=== PATIENT | male | born 1950 | race Caucasian/White ===

== ENCOUNTER 2016-07-02 08:35 | Day surgery (SDC) | payer BC ==
[2016-06-28 15:00] VITALS: BMI 30.2
[~2016-07-02 08:35] MED LIST: LACTATED RINGERS 1,000 ML IV SCH
[2016-07-02] MEDS ORDERED: LACTATED RINGERS 1,000 ML IV ONE (09:18)
[2016-07-02] MEDS ORDERED: LIDOCAINE 1% 20 ML VIAL (10MG/ML) FOR IV START INTRADERMA ONE (09:19)
[2016-07-02 09:24] VITALS: RESP 18; TEMP 98
[2016-07-02] MEDS ORDERED: PROPOFOL 10 MG/ML 20 ML VIAL IV ONE (10:12)
--- NOTE | 2016-07-02 10:40 | P.PCN ---
Date of Procedure: 07/02/16 Procedure(s) Performed: Procedure: Total colonoscopy. Preoperative diagnosis: Screening for neoplasia. Postoperative diagnosis: 1. Mild sigmoid diverticulosis with no evidence of acute diverticulitis or strictures. 2. No polyps or tumors seen. 3. Low-grade internal hemorrhoids without bleeding at the time of this exam. Preparation: HalfLytely prep. Sedation: Was provided by anesthesia. Brief clinical history: The patient is a 65-year-old male who was scheduled for this evaluation for screening for neoplasia age being his risk factor. He had a prior exam more than 10 years ago. At this time, he has no abdominal complaints, bleeding or anemia. Procedure: With the patient on his left lateral decubitus position and after informed consent and adequate sedation, the perianal area was inspected and it did not show any fissures or fistulas. There were no masses felt on digital rectal examination. The Olympus CFQ 160L video colonoscope was then inserted in the rectum in the usual fashion and advanced to the cecum. There was occasional small diverticular orifice seen in the sigmoid with no evidence of acute diverticulitis or strictures. The mucosa appeared healthy. No polyps or tumors were seen. I retroflexed endoscope in the rectum before the endoscope was withdrawn. The patient tolerated the procedure well. Plan: The patient was reassured. Discussed dietary measures and local care for hemorrhoids. He will follow-up with you as planned and I recommended repeat exam in 10 years.
[2016-07-02 10:54] VITALS: BP 178/87; PULSE 48
== END 2016-07-02 11:21 | disposition home or self-care (01) ==
LOC: ORWHC2ENDO 08:35
DX: Z12.11 Encounter for screening for malignant neoplasm of colon (principal); K57.30 Diverticulosis of large intestine without perforation or abscess without bleeding; K64.8 Other hemorrhoids; I25.10 Atherosclerotic heart disease of native coronary artery without angina pectoris; Z95.5 Presence of coronary angioplasty implant and graft; K21.9 Gastro-esophageal reflux disease without esophagitis; I10 Essential (primary) hypertension; E78.5 Hyperlipidemia, unspecified; Z79.82 Long term (current) use of aspirin; Z79.899 Other long term (current) drug therapy
CPT/HCPCS: J2704; G0121; 45378; 99153

== ENCOUNTER → 2017-03-11 | Outpatient (CLI) | payer BC ==
--- NOTE | 2017-03-11 16:53 | XR ---
EXAMINATION TYPE: XR foot complete RT DATE OF EXAM: 03/11/2017 COMPARISON: NONE HISTORY: Pain TECHNIQUE: 3 views FINDINGS: There are plantar and Achilles calcaneal spurs. The metatarsals appear intact. There is mul tiple hammertoe deformity. I see no fracture. IMPRESSION: No acute abnormality of the right foot.
== END ==
LOC: RADXRYALE 16:31
PROVIDERS: ATTEND Physician Assistant
DX: M79.671 Pain in right foot (principal)

== ENCOUNTER 2017-06-17 10:36 | Emergency (ER) | payer BC ==
[2017-06-17 10:50] VITALS: RESP 16
[2017-06-17] MEDS ORDERED: SODIUM CHLORIDE 0.9% 1,000 ML IV STA ×2 (11:42→11:44)
[2017-06-17] MEDS ORDERED: AMPICILLIN-SULBACTAM 3 GM in SODIUM CHLORIDE 0.9% 100 ML IVPB STA (11:46)
[2017-06-17] MEDS ORDERED: KETOROLAC 30 MG/ML 1 ML VIAL IVP STA (11:48)
--- NOTE | 2017-06-17 12:06 | ED ---
Extremity Problem HPI - General Chief complaint: Extremity Problem,Nontraumatic Stated complaint: RT KNEE PAIN Time Seen by Provider: 06/17/17 11:36 Source: patient Mode of arrival: ambulatory Limitations: no limitations - History of Present Illness Initial comments: This 66-year-old white male presents with a complaint of some swelling and redness present to his right knee. He states that he first noticed this 2 days ago. He apparently was doing a lot of work on his knees approximately 5 days ago. He does have psoriasis overlying his right knee. He started feeling very fatigued and weak approximately 3 days ago. He states that his highest temperature was 99.9. He was seen at an urgent care today and was sent to the ER for further evaluation. They did give him a Rocephin IM injection in the urgent care. He does complain of some slight pain to his right knee and leg. He denies any other complaints or modifying factors. - Related Data Home Medications Medication Instructions Recorded Confirmed Atenolol [Tenormin] 12.5 mg PO DAILY 07/01/14 06/17/17 Atorvastatin Calcium [Lipitor] 80 mg PO HS 07/01/14 06/17/17 Famotidine [Pepcid] 20 mg PO BID 07/01/14 06/17/17 Nitroglycerin Sl Tabs [Nitrostat] 0.4 mg SUBLINGUAL Q5M PRN 07/01/14 06/17/17 Prasugrel [Effient] 10 mg PO DAILY 07/01/14 06/17/17 Aspirin [Adult Low Dose Aspirin EC] 81 mg PO DAILY 06/28/16 06/17/17 Cholecalciferol [Vitamin D3] 3,000 unit PO BID 06/28/16 06/17/17 Levothyroxine Sodium [Synthroid] 150 mcg PO DAILY 06/28/16 06/17/17 Lisinopril [Zestril] 5 mg PO DAILY 06/17/17 06/17/17 Previous Rx's Medication Instructions Recorded Amoxic-Pot Clav 875-125Mg 1 each PO Q12HR #20 tablet 06/17/17 [Augmentin Xr 875-125] Sulfamethox-Tmp 800-160Mg [Bactrim 1 tab PO Q12HR #20 tab 06/17/17 DS 800-160 mg] Allergies Allergy/AdvReac Type Severity Reaction Status Date / Time No Known Allergies Allergy Verified 06/17/17 10:50 Review of Systems ROS Statement: Those systems with pertinent positive or pertinent negative responses have been documented in the HPI. ROS Other: All systems not noted in ROS Statement are negative. Past Medical History Past Medical History: Coronary Artery Disease (CAD), Chest Pain / Angina, GERD/ Reflux, Hyperlipidemia, Hypertension, Myocardial Infarction ([place]), Skin Disorder , Thyroid Disorder Additional Past Medical History / Comment(s): hypothyroid, psoriases (knees), arthritis, beginning of glaucoma, shingles > 5 yrs ago Last Myocardial Infarction Date:: 2010 History of Any Multi-Drug Resistant Organisms: None Reported Past Surgical History: Heart Catheterization, Heart Catheterization With Stent, Tonsillectomy Additional Past Surgical History / Comment(s): colonoscopy, x2 heart caths, x5 heart cath w/ stents Past Anesthesia/Blood Transfusion Reactions: No Reported Reaction Date of Last Stent Placement:: 2002,2007,2010.2013 Past Psychological History: No Psychological Hx Reported Smoking Status: Never smoker Past Alcohol Use History: None Reported Past Drug Use History: None Reported - Past Family History Sister(s) Family Medical History: Cancer Additional Family Medical History / Comment(s): breast cancer Father Family Medical History: Congestive Heart Failure (CHF) Additional Family Medical History / Comment(s): at age 78 from chf Mother Family Medical History: Congestive Heart Failure (CHF) Additional Family Medical History / Comment(s): at age 7 from chf General Exam - General Exam Comments Initial Comments: GENERAL: The patient is well nourished and well hydrated. VITAL SIGNS: Heart rate, blood pressure, respiratory rate reviewed as recorded in nurse's notes. EYES: Pupils are round and reactive. Extraocular movements are intact. No conjunctival / lid redness or swelling. ENT: No external evidence of injury, swelling, or ecchymosis. Airway is patent. Throat is clear. NECK: Nontender. No swelling or evidence of injury. No subcutaneous emphysema. Trachea is midline. No thyroid mass. HEART: Regular rate and rhythm. Good peripheral pulses. LUNGS/CHEST: Breath sounds clear and equal bilaterally. No rales, rhonchi, or wheezes. No ecchymosis, subcutaneous emphysema, or tenderness. ABDOMEN: Abdomen soft without tenderness. No palpable masses or organomegaly. No peritoneal signs. No abdominal wall swelling or ecchymosis. EXTREMITIES: There is some mild tenderness around palpation of the right knee. There does not appear to be any joint effusion or prepatellar bursitis. There is excellent range of motion of the knee without any difficulty. Normal muscle tone and function. No thoracolumbar tenderness. NEUROLOGIC: Sensation is grossly intact. Cranial nerve exam reveals face is symmetrical, tongue is midline, speech is clear. SKIN: There is mild psoriasis over the anterior portion of the knee. There is associated diffuse erythema present throughout the anterior surface of the knee which extends proximally and distally. There is some minimal lymphangitis noted. No induration or masses noted. PSYCHIATRIC: Alert and oriented. Appropriate behavior and judgment. Limitations: no limitations Course Vital Signs 06/17/17 10:46 Temperature 97.1 F L Pulse Rate 72 Respiratory 16 Rate Blood Pressure 136/71 O2 Sat by Pulse 97 Oximetry Medical Decision Making - Medical Decision Making The patient was seen and examined. All diagnostics were reviewed. An IV is started and he is hydrated. He also receives some Unasyn intravenously. A discussion was held regarding admission for IV antibiotics for this cellulitis. He refuses admission. He states that his is having surgery today and he has animals to take care of does not want to be admitted. Risks and benefits were discussed in detail. We will, therefore, tried to maximize outpatient treatment benefits. Return parameters are discussed as well. It does not appear that the patient has any degree of septic knee or bursitis at this time but it seems more of a right leg cellulitis. The laboratory shows a normal white blood cell count with mild anemia and some mild renal insufficiency with inflammatory markers elevated. The x-ray of the right knee shows tricompartmental arthritis. There is also some soft tissue swelling. Clinically, it is not felt as though he has a septic knee or bursitis. Nevertheless, it is felt as though he should stay but he still refuses. He is counseled regarding need to increase oral fluid hydration for the next several days. He is instructed to utilize Tylenol instead of Motrin if needed for fever. Is felt as though he should return if his symptoms do worsen and he does agree. Orthopedic follow-up will be given as well. He leaves in no identifiable distress and refuses any pain medications. - Lab Data Result diagrams: 06/17/17 11:58 06/17/17 11:58 Lab Results 06/17/17 06/17/17 Range/Units 11:58 11:58 WBC 9.4 (3.8-10.6) k/uL RBC 4.05 L (4.30-5.90) m/uL Hgb 12.5 L (13.0-17.5) gm/dL Hct 37.6 L (39.0-53.0) % MCV 92.6 (80.0-100.0) fL MCH 30.8 (25.0-35.0) pg MCHC 33.3 (31.0-37.0) g/dL RDW 13.0 (11.5-15.5) % Plt Count 296 (150-450) k/uL Neutrophils % (Manual) 59 % Band Neutrophils % 1 % Lymphocytes % (Manual) 16 % Monocytes % (Manual) 23 % Eosinophils % (Manual) 1 % Neutrophils # (Manual) 5.60 (1.3-7.7) k/uL Lymphocytes # (Manual) 1.50 (1.0-4.8) k/uL Monocytes # (Manual) 2.16 H (0-1.0) k/uL Eosinophils # (Manual) 0.09 (0-0.7) k/uL Nucleated RBCs 0 (0-0) /100 WBC Manual Slide Review Performed RBC Morphology Normal Sodium 139 (137-145) mmol/L Potassium 4.6 (3.5-5.1) mmol/L Chloride 103 (98-107) mmol/L Carbon Dioxide 25 (22-30) mmol/L Anion Gap 11 mmol/L BUN 26 H (9-20) mg/dL Creatinine 1.30 H (0.66-1.25) mg/dL Est GFR (MDRD) Af Amer >60 (>60 ml/min/1.73 sqM) Est GFR (MDRD) Non-Af 56 (>60 ml/min/1.73 sqM) Glucose 110 H (74-99) mg/dL Calcium 9.0 (8.4-10.2) mg/dL C-Reactive Protein 51.3 H (<10.0) mg/L Disposition Clinical Impression: Cellulitis, Arthritis of right knee, Psoriasis, Renal insufficiency Disposition: HOME SELF-CARE Condition: Fair Instructions: Cellulitis (ED), Arthritis (ED) Prescriptions: Amoxic-Pot Clav 875-125Mg [Augmentin Xr 875-125] 1 each PO Q12HR #20 tablet Sulfamethox-Tmp 800-160Mg [Bactrim DS 800-160 mg] 1 tab PO Q12HR #20 tab Referrals: Morgan Grewal DO [Primary Care Provider] - 1-2 days Kolby Fernandez MD [STAFF PHYSICIAN] - 06/19/17 Time of Disposition: 13:05
[2017-06-17 12:23] LABS: HCT 37.6 % (39.0-53.0); HGB 12.5 gm/dL (13.0-17.5); MCH 30.8 pg (25.0-35.0); MCHC 33.3 g/dL (31.0-37.0); MCV 92.6 fL (80.0-100.0); Mean Platelet Volume 6.6; Platelet Count 296 k/uL (150-450); RBC 4.05 m/uL (4.30-5.90); WBC 9.4 k/uL (3.8-10.6)
[2017-06-17 12:26] LABS: Anion Gap 11 mmol/L; Blood Urea Nitrogen 26 mg/dL (9-20); C Reactive Protein 51.3 mg/L (<10.0); Carbon Dioxide 25 mmol/L (22-30); Chloride 103 mmol/L (98-107); Glucose 110 mg/dL (74-99); Potassium 4.6 mmol/L (3.5-5.1); Sodium 139 mmol/L (137-145)
[2017-06-17 12:44] LABS: Band Neutrophils % 1 %; Eosinophils # (M) 0.09 k/uL (0-0.7); Monocytes # (M) 2.16 k/uL (0-1.0); Neutrophils % (M) 59 %; Nucleated Red Blood Cells 0 /100 WBC (0-0); Total Cells Counted 100
--- NOTE | 2017-06-17 12:53 | XR ---
EXAMINATION TYPE: XR knee complete RT DATE OF EXAM: 06/17/2017 COMPARISON: NONE HISTORY: 66-year-old male with anterior swelling, bruising, pain TECHNIQUE: 3 views FINDINGS: There is moderate to severe narrowing medial compartment cartilage and joint space. Tricompartmental degenerative spurring is present. There is some bony hyperostosis along the medial margin of the medi al femoral condyle that could represent sequela of prior MCL injury. Prepatellar soft tissue swelling . Extensor mechanism is intact. Small knee joint effusion nonspecific. IMPRESSION: 1. Tricompartmental osteoarthrosis, moderate to severe in the medial compartment. 2. Prepatellar soft tissue swelling could represent contusion, cellulitis, or mild prepatellar bursit is. 3. Nonspecific small knee joint effusion. 4. No acute osseous abnormality seen.
[2017-06-17 13:15] LABS: Erythrocyte Sedimentation Rate 48 mm/hr (0-15)
[2017-06-17 13:25] VITALS: BP 121/62; PULSE 58; TEMP 98.4
== END 2017-06-17 13:40 | disposition home or self-care (01) ==
LOC: EC 10:36
DX: M17.11 Unilateral primary osteoarthritis, right knee (principal); L03.115 Cellulitis of right lower limb; L40.9 Psoriasis, unspecified; N28.9 Disorder of kidney and ureter, unspecified; R00.1 Bradycardia, unspecified; D64.9 Anemia, unspecified; E78.5 Hyperlipidemia, unspecified; I10 Essential (primary) hypertension; I25.10 Atherosclerotic heart disease of native coronary artery without angina pectoris; K21.9 Gastro-esophageal reflux disease without esophagitis; E03.9 Hypothyroidism, unspecified; I25.2 Old myocardial infarction; Z79.82 Long term (current) use of aspirin; Z79.899 Other long term (current) drug therapy; Z86.79 Personal history of other diseases of the circulatory system
CPT/HCPCS: 99284; 96365; 96375; 96361 ×2; 96360; 36415; 93005; 80048; 85652; 85025; 86140; 73562; J1885; J0295

== ENCOUNTER → 2017-06-28 | Outpatient (CLI) | payer BC ==
--- NOTE | 2017-06-28 11:58 | US ---
EXAMINATION TYPE: US kidneys/renal and bladder DATE OF EXAM: 06/28/2017 COMPARISON: NONE CLINICAL HISTORY: [id number] Abnormal results of Kidney Function Studies. Elevated creatinine EXAM MEASUREMENTS: Right Kidney: 10.1 x 5.1 x 5.0 cm Left Kidney: 9.8 x 5.2 x 4.3 cm Right Kidney: 0.5cm echogenic focus inferior pole. Cortical medullary differentiation is maintained. No solid or cystic masses are noted. Left Kidney: no hydronephrosis, nephrolithiasis or masses seen. Cortical medullary differentiation is maintained. Bladder: wnl Bilateral Jets seen: yes There is no evidence for hydronephrosis at this point in time. No masses are identified. The urinary bladder is anechoic. Bilateral ureteral jets are seen. IMPRESSION: 1. Nonobstructing 5 mm right inferior pole renal calculus. 2. No evidence of hydronephrosis or sonographic evidence of medical renal disease.
== END | disposition home or self-care (01) ==
LOC: RADUSWWP 11:00
PROVIDERS: ATTEND Family Medicine
DX: N20.0 Calculus of kidney (principal)
CPT/HCPCS: 76770

== ENCOUNTER → 2018-07-10 | Outpatient (CLI) | payer BC ==
--- NOTE | 2018-07-10 15:08 | XR ---
EXAMINATION TYPE: XR knee complete bilateral DATE OF EXAM: 07/10/2018 CLINICAL HISTORY: Chronic bilateral knee pain TECHNIQUE: Three views of the bilateral knees were obtained. COMPARISON: 06/17/2017 FINDINGS: There is no acute fracture/dislocation evident in either knee. Moderate marginal osteophyt es are seen of the medial compartment with medial compartment joint space narrowing on the left. Smal l patellofemoral osteophytes are also noted as well as joint space narrowing. No discrete suprapatell ar joint effusion. On the right there are large protuberant medial compartment osteophytes with near [id number] articulation of the medial compartment and moderate lateral compartment osteophytes as w ell as small patellofemoral osteophytes with joint space narrowing. No discrete joint effusion. The o verlying soft tissue appears unremarkable. IMPRESSION: 1. No acute fracture or dislocation in either knee. 2. Mild left and moderate right tricompartmental arthropathy with near [id number] articulation of t he medial compartment of the right knee.
== END ==
LOC: RADXRYALE 14:44
PROVIDERS: ATTEND Physician Assistant Medical
DX: M12.862 Other specific arthropathies, not elsewhere classified, left knee (principal)

== ENCOUNTER → 2022-10-18 | Outpatient (CLI) | payer BC ==
--- NOTE | 2022-10-19 15:17 | XR ---
EXAMINATION TYPE: XR lumbosacral spine min 4V DATE OF EXAM: 10/18/2022 COMPARISON: None HISTORY: Pain x5-6 months TECHNIQUE: 5 view lumbar spine FINDINGS: There are 5 lumbar-type vertebral bodies. The pedicles are intact. Mild facet degenerative changes present diffusely throughout the lumbar spine. Spondylosis is present. There is narrowing of disc height at L4-5, L3-4, posteriorly at L2-3 and L1-2. Minimal wedge deformity of L1 may be present . No posterior wall displacement is evident. IMPRESSION: 1. Multilevel degenerative disc changes, greatest at L4-5. 2. Spondylosis. 3. Old appearing mild wedge deformity of L1.
== END | disposition home or self-care (01) ==
LOC: RADXRYALE 16:12
PROVIDERS: ATTEND Physician Assistant Medical
DX: M51.36 Other intervertebral disc degeneration, lumbar region (principal); M47.816 Spondylosis without myelopathy or radiculopathy, lumbar region
CPT/HCPCS: 72110

== ENCOUNTER → 2024-04-06 | Outpatient (CLI) | payer BC ==
--- NOTE | 2024-04-06 16:59 | XR ---
EXAMINATION TYPE: XR ankle complete RT DATE OF EXAM: 04/06/2024 4:54 PM COMPARISON: None CLINICAL INDICATION: Male, 73 years old with history of [id number] RT ANKLE PAIN; [facility], pain TECHNIQUE: XR ankle complete RT; ankle is imaged in frontal, lateral and oblique projections. FINDINGS: There is no evidence of acute osseous pathology. No evidence of subluxation or dislocation. Kager's fat pad is intact. Mild soft tissue swelling around the ankle. No radiopaque foreign bodies are ident ified. Multifocal degeneration changes throughout the joints of the foot with osteophyte formation an d joint space narrowing. Calcaneal Achilles enthesophyte. Calcaneal plantar spurring is present. Larg e posterior process of the talus with possible ankle joint body just calcified measuring up to 5 mm. IMPRESSION: 1. No evidence of acute fracture. 2. Subcutaneous swelling around the ankle likely secondary to underlying soft tissue injury. 3. Moderate multifocal degeneration changes throughout the joints of the ankle. Soft tissue swelling around the ankle correlate for injury. Remote injury to the medial malleolus. Possible joint body posterior ankle. [facility], , 04/06/2024 4:57 PM
== END | disposition home or self-care (01) ==
LOC: RADXRYALE 16:39
PROVIDERS: ATTEND Physician Assistant Medical
DX: M19.071 Primary osteoarthritis, right ankle and foot (principal)